=== PATIENT | male | born 1995 | race Two or more races ===

== ENCOUNTER 2016-07-30 12:23 | Emergency (ER) | payer SELFPAY ==
[2016-07-30] MEDS ORDERED: NO HOME MEDICATION XX (12:26)
[2016-07-30 13:33] LABS: BASO % 0.6 % (0-2); EOS % 0.8 % (0-7); EOSINOPHIL ABSOLUTE COUNT 0.1 tho/cmm (0.0-0.7); HGB-HEMOGLOBIN 14.6 gm/dl (13.5-17.0); IMMATURE GRANULOCYTES ABSOLUTE 0.04 tho/cmm (0-0.03); IMMATURE GRANULOCYTES PERCENT 0.6 % (0-0.3); LYMPH % 30.1 % (20-45); LYMPH ABSOLUTE COUNT 2.2 tho/cmm (0.8-4.5); MCH (MEAN CORPUSCULAR HGB) 30.7 pg (28.0-32.0); MCHC MEAN CORPUSCULAR HGB CONC 34.8 % (32.0-36.0); MCV (MEAN CELL VOLUME) 88.4 fl (82.0-96.0); MEAN PLATELET VOLUME 9.9 cmc (9.4-12.4); MONOCYTE ABSOLUTE COUNT 0.9 tho/cmm (0.0-1.2); NEUTROPHILS % 55.9 % (40-80); PLATELET COUNT 263 tho/cmm (150-450); RED BLOOD COUNT 4.75 mil/cmm (4.40-5.70); RED CELL DISTRIBUTION WIDTH 12.8 % (12.4-16.4); WHITE BLOOD COUNT 7.2 tho/cmm (4.0-10.0)
== END 2016-07-30 14:05 ==
LOC: EDMED 12:23
PROVIDERS: Physician Assistant
DX: Z22 Carrier of infectious disease (principal)